=== PATIENT | male | born 1960 | race Hispanic/Latino ===

== ENCOUNTER 2017-05-21 07:26 | Day surgery (SDC) | payer BC ==
[2017-05-16 10:39] VITALS: BMI 26.3
--- NOTE | 2017-05-21 07:42 | HP ---
REASON FOR ADMISSION: Abnormal stress test for cardiac cath and possible angioplasty. BRIEF CLINICAL HISTORY: A 57-year-old male with a past medical history significant for ST-segment elevation myocardial infarction dated 10/15/2016, status post primary angioplasty of the circumflex. While the patient after having cleaning the snow from the car, the patient developed chest pain and brought to the [facility] and had primary angioplasty of the circumflex done. The patient is complaining of mild chest discomfort, so subsequently the patient had a stress test done as a followup that showed reversible ischemia on the lateral wall, so the patient is scheduled for an elective cardiac cath and possible angioplasty. The patient had a stress test dated 05/07/2017. The patient walked on the treadmill and achieved 90% predicted heart rate of 161. Exercise duration was 12 minutes, stage IV. Exercise capacity 13.4 metabolic equivalents, but the nuclear scan shows abnormal myocardial perfusion study, partially reversible inferior inferolateral defect suspicious for ischemia, ejection fraction 66%. PAST MEDICAL HISTORY: Significant for hypertension, hyperlipidemia and coronary artery disease status post STEMI October 2016. SOCIAL HISTORY: Ex-smoker and ex-substance abuse. Recent cardiac workup stress test 05/07/2017 that shows the ejection fraction 66% reversible ischemia inferior inferolateral wall. CURRENT MEDICATIONS: The patient is taking omega-3 fatty and multivitamin, metoprolol 25 mg daily, lisinopril 2.5 mg daily, Plavix 75 mg daily, atorvastatin 80 mg daily and aspirin 81 mg daily. REVIEW OF SYSTEMS: As per HPI. PHYSICAL EXAMINATION: VITAL SIGNS: Height of the patient 5 feet 6 inch, weight of the patient 173 pounds and body mass index 26 kg/m2. Rest of the exam as follows; heart rate 60 and blood pressure 110/78. HEENT: PERRLA. Extraocular muscles intact. NECK: Supple. No carotid bruit. No thyromegaly. CHEST: Clear to auscultation. HEART: S1 and S2, regular. ABDOMEN: Soft. EXTREMITIES: Clubbing and cyanosis negative. LABORATORY DATA: Blood workup pending. EKG shows normal sinus. IMPRESSION: Abnormal stress test dated 05/07/2017 shows inferior inferolateral wall ischemia, history of coronary artery status post stent primary on circumflex 10/15/2016, ex-smoker, ex-substance abuse, hypertension and hyperlipidemia. RECOMMENDATION: Cardiac cath and further recommendation after the cardiac catheterization. The patient agreed for possible angioplasty and signed the consent. We will review the blood work. If the blood remains acceptable, BUN and creatinine, we will proceed for cardiac catheterization and possible angioplasty. Thank you Dr. Arnulfo Quan for providing the opportunity in taking care of the patient. Mariia Musa MD
[2017-05-21 07:51] LABS: BASO # 0.01 K/mm3 (0.0-2.0); BASO % 0.2 % (0.0-3.0); EOS # 0.1 (0.0-0.7); EOS % 2.2 % (1.5-5.0); GRAN # 3.98 (1.4-6.5); GRAN % 63.9 % (50.0-68.0); HEMOGLOBIN 15.8 g/dL (14.0-18.0); LYMPH # 1.5 (1.2-3.4); LYMPH % 24.6 % (22.0-35.0); MEAN CELL VOLUME 91.2 fl (80.0-105.0); MEAN CORPUSCULAR HEMOGLOBIN 32.4 pg (25.0-35.0); MEAN CORPUSCULAR HGB CONC 35.5 g/dl (31.0-37.0); MONO # 0.6 (0.1-0.6); MONO % 9.1 % (1.0-6.0); PLATELET COUNT 213 10^3/uL (120.0-450.0); RBC 4.88 10^6/uL (3.5-6.1); RED CELL DISTRIBUTION WIDTH 12.8 % (11.5-14.5); WHITE BLOOD COUNT 6.2 10^3/ul (4.5-11.0)
[2017-05-21 08:02] LABS: BLOOD UREA NITROGEN 19 mg/dL (7-21); GFR AFRICAN-AMERICAN > 60; GFR NON-AFRICAN AMERICAN > 60; INR 0.99 (0.93-1.08); PROTHROMBIN TIME 10.7 Seconds (9.9-11.8)
[2017-05-21 08:17] VITALS: O2SAT 95
[2017-05-21] MEDS ORDERED: Nitroglycerin 50mg in D5W 50 MG/250 ML BOTTLE IV ONE (08:46)
[2017-05-21] MEDS ORDERED: Lidocaine 2% Inj (20ml) ONE (08:46)
[2017-05-21] MEDS ORDERED: Midazolam 2 MG/2 ML VIAL ONE (09:05)
[2017-05-21] MEDS ORDERED: Phenylephrine 10 mg/ml Inj ONE (09:25)
[2017-05-21] MEDS ORDERED: Iohexol 350mgl/ml 50 ML ONE (09:41)
[2017-05-21] MEDS ORDERED: Eptifibatide 20 mg/10mL Inj IVP ONE (09:42)
[2017-05-21] MEDS ORDERED: Iohexol 350 MG/100 ML VIAL ONE (09:50)
[2017-05-21] MEDS ORDERED: Sodium Chloride 0.9% 1,000 ML IV SCH (10:45)
[2017-05-21 12:01] VITALS: RESP 20
[2017-05-21 12:39] LABS: BLOOD UREA NITROGEN 16 mg/dL (7-21); CALCIUM 8.8 mg/dL (8.4-10.5); GFR AFRICAN-AMERICAN > 60; GFR NON-AFRICAN AMERICAN > 60
[2017-05-21] MEDS ORDERED: Bacitracin 500 Units/gm Oint Foilpak UD ONE (15:01)
--- NOTE | 2017-05-21 15:55 | CARD ---
APPROVED REPORT EKG Measurement Heart [id number] <Conclusion> Sinus bradycardia Possible Lateral infarct, age undetermined Inferior infarct, age undetermined Abnormal ECG
[2017-05-21 16:52] VITALS: BP 123/75; PULSE 55; TEMP 98.3
--- NOTE | 2017-05-21 16:53 | CARD ---
APPROVED REPORT Procedure(s) performed: Left Heart Catheterization PTCA with Stenting of Mid LAD HISTORY The patient is a 57 year-old with a history of : previous NC (> 7 days), most recent EF: 66%. (EF Method: RADIONUCLIDE), previous diagnostic cath, tobacco history() : The patient is a former smoker , previous PCI (The PCI date was 10/15/2016), hypertension , dyslipidemia . INDICATION The indication(s) include : positive stress test. CASE TECHNIQUE The patient was brought electively to the Cardiac Catheterization Laboratory in a fasting state and was prepped and draped in a sterile manner. The left wrist was infiltrated with 2% Lidocaine subcutaneous anesthesia. A 6 Fr Glidesheath (Radial) sheath was inserted into the left radial artery without difficulty. Coronary angiography was performed using coronary diagnostic catheters. The left coronary system was accessed and visualized with a Diagnostic ,5 Fr JL 4 catheter. The right coronary system was accessed and visualized with a Diagnostic ,5 Fr 3DRC catheter. The left ventricle was accessed and visualized with a 5 Fr Pigtail 145 (Angled) catheter. Left ventricular/Aortic Valve gradient assessed on pullback. Left ventriculogram was performed in DUNBAR projection. The patient tolerated the procedure well and there were no complications associated with the procedure. Vessel Analysis The patient's coronary anatomy is co-dominant. The left main coronary artery is a large size vessel with diffuse calcification noted throughout this vessel and without significant stenosis. The left main bifurcates to the left anterior descending and circumflex. The left anterior descending artery is a medium size vessel with diffuse calcification noted throughout this vessel and with significant stenosis. There is a 80% stenosis in the mid segment. 50-60% stenosis in proximal segment The first diagonal branch is a medium size vessel with diffuse calcification noted throughout this vessel and without significant stenosis. The second diagonal branch is a medium size vessel with diffuse calcification noted throughout this vessel and without significant stenosis. The circumflex artery is a large size vessel with diffuse calcification noted throughout this vessel and without significant stenosis. patent stent in proximal to mid segment There is a 30-40% stenosis in the distal segment. The first obtuse marginal branch is a small size vessel with diffuse calcification noted throughout this vessel and without significant stenosis. The second obtuse marginal branch is a medium size vessel with diffuse calcification noted throughout this vessel and without significant stenosis. The left posterior descending artery is a large size vessel with diffuse calcification noted throughout this vessel and without significant stenosis. The right coronary artery is a medium size vessel with diffuse calcification noted throughout this vessel and without significant stenosis. There is a 50-60% stenosis in the proximal to mid segment. The right posterior descending artery is a small size vessel with diffuse calcification noted throughout this vessel and without significant stenosis. There is a 50% stenosis in the proximal segment. Left Ventricle The left ventricle is normal in size with normal contractility. There was no cardiomyopathy. The left ventricular ejection fraction is estimated to be 60%. The left ventricular end diastolic pressure is 14 mmHg. There was no gradient across the aortic valve upon pullback. PCI Technique Lesion Anticoagulation was achieved with Heparin. Percutaneous coronary intervention was performed on the mid left anterior descending artery segment. The lesion stenosis prior to intervention was 80% with PINKY 2 flow. A 6 Fr XB 3.5 Guide Catheter was used to engage the ostium. BALLOON DILATION A Balloon catheter 2.0 x 10 mm Sprinter RX was inserted and inflated up to 10.00atm for 42seconds. STENT DEPLOYMENT A drug-eluting stent 2.25 x 14 mm Resolute MARCE was inserted and inflated up to 14atm for 20seconds. Final angiography reveals 0 % stenosis with PINKY 3 flow. Conclusion Multi vessel Diffuse and heavy atherosclerotic disease. Patent stent in proximal to mid Cx 9 placed in 10/15/2016) critical dis in Mid LAD Preseved Lv Fx. Ef-60,%. EDP-14 Distal Vessels atre poor target for CABG( not suitable). Successful PTCA with MARCE of Mid LAD. Recommendations Smoking Cessation Cardiac Rehabilitation ReferralDaily ASA with Plavix for at least one year Aggressive Medical TherapyCardiac Risk Reduction Program Weight Loss Reduction Program CC; Dr. Arnulfo Gonzalez MD.
== END 2017-05-21 18:27 | disposition home or self-care (01) ==
LOC: CATH 07:26 → 2RSO 10:34 → CATH 18:27
PROVIDERS: ATTEND Internal Medicine Cardiovascular Disease
DX: I25.10 Atherosclerotic heart disease of native coronary artery without angina pectoris (principal); I10 Essential (primary) hypertension; E78.5 Hyperlipidemia, unspecified; I25.2 Old myocardial infarction; Z87.891 Personal history of nicotine dependence; Z79.82 Long term (current) use of aspirin; Z95.5 Presence of coronary angioplasty implant and graft
CPT/HCPCS: 36415; 80048; 85025; 85175; 85610; 85730; 86850; 86900; 93005; 93458; 99152; 99153; C1725; C1769 ×2; C1874; C1887 ×4; C9600; J1327; J1644 ×2; J2250; J2370; J3010; J7030; J7040; Q9967 ×3